=== PATIENT | male | born 1995 | race African-American/Black ===

== ENCOUNTER → 2023-06-23 | Emergency (ER) | payer SELFPAY ==
[~2023-06-23] MED LIST: KETOROLAC 30 MG/ML INJ ONE
--- NOTE | 2023-06-24 00:52 | ER ---
Nurse's Notes [facility] Name: Arvin Oneill Age: 27 yrs Sex: Male : 1995 Arrival Date: 06/23/2023 Time: 23:26 Bed 10 Private MD: Diagnosis: ligamentous injury of right knee, initial encounter Presentation: 06/23 23:45 Chief complaint: Patient states: "I was playing basketball and I heard and felt a pop as6 in my right knee and then it was hard for me to walk". Coronavirus screen: At this time, the client does not indicate any symptoms associated with coronavirus-19. Ebola Screen: No symptoms or risks identified at this time. Initial Sepsis Screen: Does the patient meet any 2 criteria? No. Patient's initial sepsis screen is negative. Does the patient have a suspected source of infection? No. Patient's initial sepsis screen is negative. Risk Assessment: Do you want to hurt yourself or someone else? Patient reports no desire to harm self or others. Onset of symptoms was June 23, 2023. 23:45 Acuity: JACEY 4 as6 23:45 Method Of Arrival: Wheelchair as6 Triage Assessment: 06/24 01:26 General: Appears in no apparent distress. uncomfortable, Behavior is calm, cooperative. as6 Pain: Complains of pain in right knee. Musculoskeletal: Range of motion: limited in right knee Swelling present in right knee. Historical: - Allergies: 06/23 23:45 No Known Allergies; as6 - PMHx: 23:45 None; as6 - PSHx: 23:45 None; as6 - Immunization history:: Adult Immunizations up to date. - Social history:: Smoking status: Patient denies any tobacco usage or history of. Screenin/22 01:24 [facility] ED Fall Risk Assessment (Adult) Score/Fall Risk Level 0 - 2 = Low Risk. Abuse as6 screen: Denies threats or abuse. Denies injuries from another. Nutritional screening: No deficits noted. Tuberculosis screening: No symptoms or risk factors identified. Vital Signs: 06/23 23:45 BP 145 / 71; Pulse 94; Resp 18 S; Temp 99.5(TE); Pulse Ox 99% on R/A; Weight 83.91 kg as6 (R); Height 5 ft. 9 in. (R); Pain 12/11; 23:45 Body Mass Index 27.32 (83.91 kg, 175.26 cm) as6 23:45 Pain Scale: Adult as6 ED Course: 23:27 Patient arrived in ED. jj6 23:33 Angela Monk PA-C is PHCP. sb4 23:33 Clayton Lofton MD is Attending Physician. sb4 23:48 Triage completed. as6 23:48 Darrin Markham, RN is Primary Nurse. as6 23:48 Arm band placed on. as6 06/24 00:21 Knee Right 3 View XRAY In Process Unspecified. EDMS 00:51 Ronnie Carreon MD is Referral Physician. sb4 00:51 Javon Culp MD is Referral Physician. sb4 00:51 Narinder Hearn MD is Referral Physician. sb4 01:25 Bed in low position. Call light in reach. Side rails up X 1. Adult w/ patient. Provided as6 Education on: follow up. 01:25 No provider procedures requiring assistance completed. Patient did not have IV access as6 during this emergency room visit. 01:26 Crutch training done. Knee immobilizer applied on right knee. as6 Administered Medications: 00:01 Drug: Ketorolac IM 30 mg IM once Route: IM; Site: left deltoid; me1 01:26 Follow up: Response: No adverse reaction as6 Medication: 01:24 VIS not applicable for this client. as6 Outcome: 00:51 Discharge ordered by MD. sb4 01:25 Discharged to home ambulatory, with crutches, with family, as6 01:25 Condition: stable 01:25 Discharge instructions given to patient, family, Instructed on discharge instructions, follow up and referral plans. crutch walking, Demonstrated understanding of instructions, follow-up care, crutch walking, 01:27 Patient left the ED. as6 Signatures: Dispatcher [employer] EDLA Cydney Green [email or web address] Darrin Markham, RN RN as6 Angela Monk PA-C PA-C sb4 Annette Cabrera RN RN me1
--- NOTE | 2023-06-24 00:52 | EDPHYS ---
Physician Documentation [facility] Name: Arvin Oneill Age: 27 yrs Sex: Male : 1995 Arrival Date: 06/23/2023 Time: 23:26 Bed 10 Private MD: ED Physician Clayton Lofton HPI: 06/23 23:50 This 27 yrs old Black Male presents to ER via Wheelchair with complaints of Knee sb4 Injury, Knee Pain. 23:50 The patient presents with an injury, pain, that is acute, swelling. The complaints sb4 affect the right knee. Context: The problem was sustained at a sports field or court, resulted from an unknown cause, the patient is not able to bear weight, the patient is not able to ambulate, Problem is a result from a previous injury: No. Onset: The symptoms/episode began/occurred just prior to arrival. Associated signs and symptoms: The patient has no apparent associated signs or symptoms. patient was playing basketball, jumped up, and landed funny on his right knee. states he heard a pop. moderate amount of swelling and pain. states cannot bear weight. Historical: - Allergies: 23:45 No Known Allergies; as6 - PMHx: 23:45 None; as6 - PSHx: 23:45 None; as6 - Immunization history:: Adult Immunizations up to date. - Social history:: Smoking status: Patient denies any tobacco usage or history of. ROS: 23:50 Constitutional: Negative for fever, chills, and weight loss, sb4 23:50 MS/extremity: Positive for injury or acute deformity, pain, swelling, of the right knee, 23:50 All other systems are negative, Exam: 23:50 Constitutional: This is a well developed, well nourished patient who is awake, alert, sb4 and in no acute distress. Head/Face: Normocephalic, atraumatic. Eyes: Extra-ocular motions intact. Periorbital areas with no swelling, redness, or edema. ENT: Mucous membranes moist. Skin: Warm, dry with normal turgor. Normal color with no rashes, no lesions, and no evidence of cellulitis. Neuro: Awake and alert, GCS 15, oriented to person, place, time, and situation. Motor strength 5/5 in all extremities. Sensory grossly intact. 23:50 Musculoskeletal/extremity: ROM: limited active range of motion due to pain, limited passive range of motion due to pain, in the right leg, Circulation is intact in all extremities. Pulses: are normal with no appreciated deficits, Perfusion: the patient is normally perfused throughout, Perfusion: the extremity is normally perfused throughout, Calf tenderness, is absent, Sensation intact. Joints: the right knee displays effusion, painful range of motion, swelling, tenderness, Vital Signs: 23:45 BP 145 / 71; Pulse 94; Resp 18 S; Temp 99.5(TE); Pulse Ox 99% on R/A; Weight 83.91 kg as6 (R); Height 5 ft. 9 in. (R); Pain 6/10; 23:45 Body Mass Index 27.32 (83.91 kg, 175.26 cm) as6 23:45 Pain Scale: Adult as6 MDM: 23:49 Patient medically screened. sb4 23:50 Differential diagnosis: dislocation, closed fracture, contusion, ligamentous injury, sb4 meniscal injury. 06/24 00:34 Independent interpretation of the following test(s) in the Emergency Department X-Ray: sb4 My interpretation is My interpretation of the knee x-ray images are no acute fracture or dislocation. 00:50 Data reviewed: vital signs, nurses notes, radiologic studies, I have discussed the sb4 patient's presentation/case with the attending Emergency Department Physician; and as a result, I will discharge patient. Counseling: I had a detailed discussion with the patient and/or guardian regarding the historical points, exam findings, and any diagnostic results supporting the discharge/admit diagnosis, radiology results, the need for outpatient follow up, a orthopedic surgeon, to return to the emergency department if symptoms worsen or persist or if there are any questions or concerns that arise at home. 06/23 23:48 Order name: Knee Right 3 View XRAY sb4 06/24 00:33 Order name: Knee Immobilizer; Complete Time: sb4 06/24 00:33 Order name: Crutches; Complete Time: sb4 Administered Medications: 00:01 Drug: Ketorolac IM 30 mg IM once Route: IM; Site: left deltoid; me1 01:26 Follow up: Response: No adverse reaction as6 Disposition Summary: 06/24/23 00:51 Discharge Ordered Notes: Location: Home sb4 Problem: new sb4 Symptoms: have improved sb4 Condition: Stable sb4 Diagnosis - ligamentous injury of right knee, initial encounter sb4 Followup: sb4 - With: Ronnie Carreon MD - When: As needed - Reason: Further diagnostic work-up, Recheck today's complaints, Re-evaluation by your physician Followup: sb4 - With: Javon Culp MD - When: As needed - Reason: Further diagnostic work-up, Recheck today's complaints, Re-evaluation by your physician Followup: sb4 - With: Narinder Hearn MD - When: As needed - Reason: Further diagnostic work-up, Recheck today's complaints, Re-evaluation by your physician Discharge Instructions: - Discharge Summary Sheet sb4 - Knee Sprain, Adult, [id number] sb4 - How to Use a Knee Immobilizer, [id number] sb4 - Acute Knee Pain, Adult, [id number] sb4 Forms: - Work release form sb4 - Medication Reconciliation Form sb4 - Thank You Letter sb4 - Antibiotic Education sb4 - Prescription Opioid Use sb4 - Patient Portal Instructions sb4 - Leadership Thank You Letter sb4 Signatures: Dispatcher [employer] Darrin Reza RN RN as6 Angela Monk PASandy PASandy sb4 Annette Cabrera, RN RN me1
[2023-06-24 04:20] VITALS: BP 145/71; TEMP 99.5; O2SAT 99
--- NOTE | 2023-06-24 14:33 | RAD REPORT ---
EXAM DESCRIPTION: RAD - Knee Right 3 View - 06/24/2023 12:19 am CLINICAL HISTORY: Pain;Swelling COMPARISON: None TECHNIQUE: 3 views of the right knee. FINDINGS: Normal mineralization. No acute fracture or dislocation. Joint spaces are maintained. IMPRESSION: No acute osseous finding. Electronically signed by: Yaneth Cardoza MD 06/24/2023 12:30 AM DIGITAL IMAGING TECHNICIAN Due to temporary technical issues with the PACS/Fluency reporting system, reports are being signed by the in house radiologists without review as a courtesy to insure prompt reporting. The interpreting radiologist is fully responsible for the content of the report.
== END ==
LOC: ER 23:26
DX: S83.511A Sprain of anterior cruciate ligament of right knee, initial encounter (principal)
CPT/HCPCS: 96372; 99284